=== PATIENT | female | born 1990 | race Caucasian/White ===

== ENCOUNTER 2021-11-15 07:37 | Outpatient (CLI) | payer MEDICAID | END 2021-11-15 23:59 | disposition home or self-care (01) | LOC: RAD 07:37 | PROVIDERS: ATTEND Psychiatry & Neurology Neurology | DX: R94.01 Abnormal electroencephalogram [EEG] (principal); G40.B09 Juvenile myoclonic epilepsy, not intractable, without status epilepticus | CPT/HCPCS: 95816 ==